=== PATIENT | female | born 1995 | race Caucasian/White ===

== ENCOUNTER → 2023-04-03 | Outpatient (CLI) | payer OTHER, MEDICAID, SELFPAY ==
--- NOTE | 2023-04-03 14:06 | NEURO ---
NCS and/or EMG Patient Report Ordering Doctor: Beau Christopher DATE OF SERVICE: 04/03/23 Deysi presents for electrodiagnostic testing of the upper limbs. She reports numbness and tingling in the hands. Electrodiagnostic findings: Median motor nerve demonstrates normal distal latency, amplitude and conduction velocity bilaterally. Normal ulnar motor response bilaterally. Normal median and ulnar F waves. Sensory responses are within normal limits. Needle EMG testing was performed the upper limbs. All muscles tested showed no evidence of denervation with normal motor unit action potentials. Electrodiagnostic impression: This is a normal electrodiagnostic study of the upper limbs. There is no electrodiagnostic evidence for peripheral neuropathy, including carpal tunnel syndrome. There is no electrodiagnostic evidence for cervical radiculopathy. Multi Select Codes Neurology Neurology Interp Codes: 37438-47 Musc test done w/n test comp (interp) (2) and 58701-51 Nrv cndj test 13/> studies (interp)
== END | disposition home or self-care (01) ==
DX: M25.531 Pain in right wrist (principal); M25.532 Pain in left wrist
CPT/HCPCS: 95886; 95913